=== PATIENT | female | born 1965 | race Caucasian/White ===

== ENCOUNTER 2018-10-31 13:11 | Emergency (ER) | payer MEDICAID ==
--- NOTE | 2018-10-31 13:28 | EDPHY ---
H & P Stated Complaint: chest pain, SOB Time Seen by Provider: 10/31/18 13:27 HPI/ROS: CHIEF COMPLAINT: Right shoulder pain, right-sided chest pain, shortness of breath, right upper quadrant tenderness HISTORY OF PRESENT ILLNESS: The patient has a history of breast cancer presents to the ED with complaints of acute right shoulder pain, right-sided chest wall pain, pleuritic chest pain, shortness of breath and mild right upper quadrant tenderness. The patient's symptoms began acutely today. She denies any vomiting or diarrhea. The patient denies any asymmetric calf pain or swelling. The patient has no prior history of PE or DVT. The patient denies any history of fall or trauma. She denies fever, cough or congestion. She denies additional acute complaints. The patient reports her pain is moderate to severe in nature and worsened with movement. REVIEW OF SYSTEMS: A comprehensive 10 point review of systems is otherwise negative aside from elements mentioned in the history of present illness. Source: Patient Exam Limitations: No limitations - Personal History Current Tetanus/Diphtheria Vaccine: Unsure Current Tetanus Diphtheria and Acellular Pertussis (TDAP): Unsure Tetanus Vaccine Date: 03-11-10 - Medical/Surgical History Hx Asthma: No Hx Chronic Respiratory Disease: No Hx Diabetes: No Hx Cardiac Disease: No Hx Renal Disease: No Hx Cirrhosis: No Hx Alcoholism: No Hx HIV/AIDS: No Hx Splenectomy or Spleen Trauma: No Other PMH: Breast CA, - Social History Smoking Status: Never smoked - Physical Exam Exam: General Appearance: Alert, no distress Eyes: Pupils equal and round no pallor or injection ENT, Mouth: Mucous membranes moist Respiratory: Tenderness to palpation right anterior chest wall, no subcutaneous emphysema Cardiovascular: Regular rate and rhythm Gastrointestinal: Abdomen is soft and nontender, no masses, bowel sounds normal Neurological: Minimal tenderness to palpation appreciated in the right upper quadrant, no rebound or guarding Skin: Warm and dry, no rashes Musculoskeletal: Neck is supple nontender Extremities: Tenderness to palpation right posterior shoulder along the musculature. Psychiatric: Patient is oriented X 3, there is no agitation Constitutional: Initial Vital Signs Temperature (C) 36.6 C 10/31/18 13:13 Heart Rate 83 10/31/18 13:13 Respiratory Rate 24 H 10/31/18 13:13 Blood Pressure 169/104 H 10/31/18 13:13 O2 Sat (%) 98 10/31/18 13:13 O2 Delivery Mode Room Air Allergies/Adverse Reactions: codeine [Codeine] Allergy (Mild, Verified 10/31/18 13:13) NAUSEA Home Medications: Medication Instructions Recorded Ibuprofen [Motrin 200 mg (OTC)] 200 mg PO DAILY PRN 02/16/12 Pharmacy Completed 02/16/12 02/16/12 Arimidex 10/31/18 LORazepam [Ativan] 1 mg PO BID PRN #10 tab 10/31/18 Medical Decision Making - Diagnostics EKG Interpretation: EKG: Complete interpretation has been separately recorded in the [facility] archive. Summary impression: Sinus rhythm, rate 61 Imaging Results: Imaging Impressions Chest X-Ray 10/31/18 13:27 Impression: No acute pulmonary disease. ED Course/Re-evaluation: Patient presents to the ED for evaluation of acute right-sided chest pain which seems to be quite musculoskeletal in nature. The patient does have a pleuritic component of chest pain. A D-dimer was ordered and negative and I feel this adequately excludes pulmonary embolism. Chest x-ray demonstrates no evidence of acute disease. The patient's liver function tests and lipase are normal. The patient's EKG and troponin are also normal. Patient was treated with IV Toradol and Ativan in the emergency department. Differential Diagnosis: Differential diagnosis considered includes costochondritis, pleurisy, pulmonary embolism, myocarditis, pericarditis, pneumothorax, cholecystitis - Data Points Laboratory Results: Laboratory Results 10/31/18 13:22 10/31/18 13:22 10/31/18 10/31/18 10/31/18 13:25 13:22 13:22 WBC RBC Hgb Hct MCV MCH MCHC RDW Plt Count MPV Neut % (Auto) Lymph % (Auto) [place] % (Auto) Eos % (Auto) Baso % (Auto) Nucleat RBC Rel Count Absolute Neuts (auto) Absolute Lymphs (auto) Absolute Monos (auto) Absolute Eos (auto) Absolute Basos (auto) Absolute Nucleated RBC Immature Gran % Immature Gran # D-Dimer 0.39 ug/mLFEU ug/mLFEU (0.00-0.50) Sodium 140 mEq/L mEq/L (135-145) Potassium 4.0 mEq/L mEq/L (3.5-5.2) Chloride 103 mEq/L mEq/L (97-110) Carbon Dioxide 28 mEq/l mEq/l (22-31) Anion Gap 9 mEq/L mEq/L (6-14) BUN 12 mg/dL mg/dL (7-23) Creatinine 0.8 mg/dL mg/dL (0.6-1.0) Estimated GFR > 60 Glucose 81 mg/dL mg/dL (70-100) Calcium 10.1 mg/dL mg/dL (8.5-10.4) Total Bilirubin 0.5 mg/dL mg/dL (0.1-1.4) Conjugated Bilirubin 0.1 mg/dL mg/dL (0.0-0.5) Unconjugated Bilirubin 0.4 mg/dL mg/dL (0.0-1.1) AST 23 IU/L IU/L (14-46) ALT 29 IU/L IU/L (9-52) Alkaline Phosphatase 58 IU/L IU/L (38-126) POC Troponin I 0.00 ng/mL ng/mL (0.00-0.08) NT-Pro-B Natriuret Pep 36 pg/mL pg/mL (0-125) Total Protein 7.4 g/dL g/dL (6.3-8.2) Albumin 4.8 g/dL g/dL (3.5-5.0) Lipase 175 IU/L IU/L (23-300) 10/31/18 13:22 WBC 7.50 10^3/uL 10^3/uL (3.80-9.50) RBC 5.26 10^6/uL 10^6/uL (4.18-5.33) Hgb 14.1 g/dL g/dL (12.6-16.3) Hct 44.0 % % (38.0-47.0) MCV 83.7 fL fL (81.5-99.8) MCH 26.8 pg L pg (27.9-34.1) MCHC 32.0 g/dL L g/dL (32.4-36.7) RDW 14.0 % % (11.5-15.2) Plt Count 324 10^3/uL 10^3/uL (150-400) MPV 10.5 fL fL (8.7-11.7) Neut % (Auto) 54.7 % % (39.3-74.2) Lymph % (Auto) 32.5 % % (15.0-45.0) [place] % (Auto) 6.8 % % (4.5-13.0) Eos % (Auto) 5.1 % % (0.6-7.6) Baso % (Auto) 0.8 % % (0.3-1.7) Nucleat RBC Rel Count 0.0 % % (0.0-0.2) Absolute Neuts (auto) 4.10 10^3/uL 10^3/uL (1.70-6.50) Absolute Lymphs (auto) 2.44 10^3/uL 10^3/uL (1.00-3.00) Absolute Monos (auto) 0.51 10^3/uL 10^3/uL (0.30-0.80) Absolute Eos (auto) 0.38 10^3/uL 10^3/uL (0.03-0.40) Absolute Basos (auto) 0.06 10^3/uL 10^3/uL (0.02-0.10) Absolute Nucleated RBC 0.00 10^3/uL 10^3/uL (0-0.01) Immature Gran % 0.1 % % (0.0-1.1) Immature Gran # 0.01 10^3/uL 10^3/uL (0.00-0.10) D-Dimer Sodium Potassium Chloride Carbon Dioxide Anion Gap BUN Creatinine Estimated GFR Glucose Calcium Total Bilirubin Conjugated Bilirubin Unconjugated Bilirubin AST ALT Alkaline Phosphatase POC Troponin I NT-Pro-B Natriuret Pep Total Protein Albumin Lipase Medications Given: Discontinued Medications Ketorolac Tromethamine (Toradol) 30 mg IVP EDNOW ONE Stop: 10/31/18 13:52 Last Admin: 10/31/18 13:59 Dose: 30 mg Lorazepam (Ativan Injection) 1 mg IVP EDNOW ONE Stop: 10/31/18 14:08 Last Admin: 10/31/18 14:15 Dose: 1 mg Point of Care Test Results: Chemistry 10/31/18 13:25 POC Troponin I 0.00 ng/mL ng/mL (0.00-0.08) Departure - Departure Disposition: Home, Routine, Self-Care Clinical Impression: Chest wall pain Condition: Good Instructions: Chest Pain (DC) Additional Instructions: 1. The testing done in the emergency department today demonstrates no evidence of a blood clot, collapsed lung, cardiac condition or other worrisome abnormality. 2. I do believe your having muscle spasms the etiology of your symptoms today. I do recommend ibuprofen 600 mg 3 times a day. 3. Ativan 1 mg twice daily as needed for muscle spasm. Do not drive or drink alcohol while taking this medication. 4. Return to the emergency department for markedly worsening symptoms or other concerns. Referrals: TRISH BERRY MD [Other] - As per Instructions
--- NOTE | 2018-10-31 13:29 | CPEKG ---
Test Reason : OPEN Blood Pressure : / mmHG Vent. Rate : 061 BPM Atrial Rate : 061 BPM P-R Int : 154 ms QRS Dur : 094 ms QT Int : 409 ms P-R-T Axes : 072 046 028 degrees QTc Int : 412 ms Sinus rhythm Confirmed by Fadi Madison [id number]) on 10/31/2018 1:28:15 PM Referred By: PHYSICIAN ED Confirmed By:Fadi Madison
[2018-10-31] MEDS ORDERED: KETOROLAC 30 MG/1 ML SDV IVP ONE (13:51)
[2018-10-31 14:06] LABS: PLATELET COUNT 324 10^3/uL (150-400)
[2018-10-31] MEDS ORDERED: LORazepam 2 MG/ML INJ IVP ONE (14:07)
[2018-10-31 14:20] VITALS: BP 114/72
== END 2018-10-31 14:38 | disposition home or self-care (01) ==
DX: R07.89 Other chest pain (principal); R06.02 Shortness of breath; R10.11 Right upper quadrant pain; M25.511 Pain in right shoulder; Z85.3 Personal history of malignant neoplasm of breast
CPT/HCPCS: 84484-ER; 96374; J1885; J2060